=== PATIENT | male | born 1970 | race Caucasian/White ===

== ENCOUNTER 2019-02-02 08:02 | Emergency (ER) | payer SELFPAY ==
[2019-02-02 08:08] VITALS: BP 141/102
[2019-02-02 08:46] LABS: ABSOLUTE EOSINOPHILS # (AUTO) 0.1 10^3/uL (0.0-0.6); ABSOLUTE MONOCYTES (AUTO) 0.8 10^3/uL (0.1-1.4); ABSOLUTE NEUT (AUTO) 2.9 10^3/uL (1.7-8.2); BASOPHILS % (AUTO) 0.9 % (0-2); EOSINOPHILS % (AUTO) 2.2 % (0-6); HEMOGLOBIN 15.9 g/dL (13.5-17.0); LYMPHOCYTES % (AUTO) 20.7 % (13-45); MEAN CORPUSCULAR HEMOGLOBIN 34.2 pg (27.0-33.4); MEAN CORPUSCULAR HGB CONC 34.5 g/dL (32.0-36.0); MEAN CORPUSCULAR VOLUME 99 fl (80-97); PLATELET COUNT 219 10^3/uL (150-450); RED BLOOD COUNT 4.63 10^6/uL (4.35-5.55); RED CELL DISTRIBUTION WIDTH 13.8 % (11.5-14.0); SEGMENTED NEUTROPHILS % (AUTO) 59.2 % (42-78); TOTAL CELLS COUNTED % (AUTO) 100 %; WHITE BLOOD COUNT 4.8 10^3/uL (4.0-10.5)
[2019-02-02 08:54] LABS: APPEARANCE,URINE CLEAR; BILIRUBIN,URINE NEGATIVE (NEGATIVE); COLOR,URINE STRAW; GLUCOSE, URINE 50 mg/dL (NEGATIVE); KETONES,URINE NEGATIVE (NEGATIVE); LEUKOCYTE ESTERASE,URINE NEGATIVE (NEGATIVE); NITRITE,URINE NEGATIVE (NEGATIVE); PROTEIN,URINE NEGATIVE (NEGATIVE); URINE SPECIFIC GRAVITY 1.002; UROBILINOGEN,URINE NEGATIVE mg/dL (<2.0)
--- NOTE | 2019-02-02 08:56 | ER Document Report ---
ED General - General Stated Complaint: RECTAL BLEEDING Time Seen by Provider: 02/02/19 08:45 TRAVEL OUTSIDE OF THE [place] IN LAST 30 DAYS: No - HPI Notes: 48-year-old male with a stated history of alcoholism,'s prior colon cancer st atus post resection remotely in [facility] presents with vomiting blood, abdominal pain and rectal bleeding. Getting Wednesday developed some left upper quadrant pain and left subcostal pain, vomited some bright red blood one time. Since then no hematemesis but had several episodes where he wiped his stool and had some bright red blood and some small clots. He has had no unplanned weight loss. Pain is gradual onset, nonradiating, throbbing and achy. He states he had 2 prior surgeries with colon resections one was 8 inches, was 36 inches. Moderate intensity, gradual onset, nonradiating. No other modifying factors, no other associated symptoms, no other provocative or palliative factors. No change in stool caliber. - Related Data Allergies/Adverse Reactions: No Known Allergies Allergy (Verified 02/02/19 08:12) Past Medical History - Social History Smoking Status: Current Every Day Smoker Chew tobacco use (# tins/day): No Frequency of alcohol use: (2) 42oz daily Drug Abuse: Marijuana Family History: Reviewed & Not Pertinent Patient has suicidal ideation: No Patient has homicidal ideation: No - Medical History Notes: Includes history of colon cancer status post resection Review of Systems - Review of Systems Notes: Review of systems as in the history of present illness, otherwise negative x 10 systems. Physical Exam - Vital signs Vitals: Temp Pulse Resp BP Pulse Ox 97.5 F 88 20 141/102 H 97 02/02/19 08:06 02/02/19 08:06 02/02/19 08:06 02/02/19 08:06 02/02/19 08:06 - Notes Notes: General: Well developed . HEENT: Normocephalic, atraumatic. Pupils equal round reactive to light. No JVD. Chest: No trauma. Respiratory: Good air exchange, normal excursion. Cardiac: Regular rhythm. No murmurs or gallops. Abdomen: Soft, nondistended, minimal left upper mid quadrant tenderness. No mass. Rectal exam shows no external hemorrhoid, no obvious mass. No active bl eeding.. Back: No asymmetry or gross abnormality. Motor: Grossly normal power and tone. Neurologic: Alert, nonfocal. Cranial nerves II-12 are intact. Sensation intact. Vascular: Well perfused. Normal peripheral pulses. Skin: No petechiae or purpura. Course - Re-evaluation Re-evalutation: 02/02/19 08:56 Well-appearing male with upper and lower GI bleeding unclear etiology. Consider Peptic ulcer disease, gastritis, malignancy. May be internal hemorrhoid. Most likely AVM, consider diverticulosis. Plan proceed with serial exams, labs, repeat examination and reassess. 02/02/19 09:45 Labs reviewed, CBC is unremarkable, chemistries and LFTs unremarkable, coags normal. Serial exam showed benign abdomen. I had extensive discussion with the patient and his regarding the critical need for outpatient follow-up. [facility] Patient understands that concern over potential for recurrence of his malignancy. She develop any worsening symptoms, return immediately. - Vital Signs Vital signs: Temp Pulse Resp BP Pulse Ox 97.5 F 88 20 141/102 H 97 02/02/19 08:06 02/02/19 08:06 02/02/19 08:06 02/02/19 08:06 02/02/19 08:06 - Laboratory Result Diagrams: 02/02/19 08:30 02/02/19 08:30 Laboratory results interpreted by me: 02/02/19 02/02/19 02/02/19 08:30 08:30 08:30 MCV 99 H MCH 34.2 H [place] % (Auto) 17.0 H Sodium 133.7 L BUN 6 L Glucose 160 H Urine Glucose (UA) 50 H Discharge - Discharge Clinical Impression: Rectal bleed Condition: Stable Disposition: HOME, SELF-CARE Instructions: Rectal Bleeding, Unclear Cause (OM) Referrals: ANCELMO SAVAGE MD [ACTIVE STAFF] - Follow up in 3-5 days [facility] [NO [facility]AL MD] - Follow up in 3-5 days
[2019-02-02 09:09] LABS: ALBUMIN 4.3 g/dL (3.5-5.0); ALKALINE PHOSPHATASE 44 U/L (38-126); ANION GAP 9 (5-19); ASPARTATE AMINO TRANSFERASE 32 U/L (17-59); BILIRUBIN,DIRECT 0.1 mg/dL (0.0-0.4); BILIRUBIN,TOTAL 0.5 mg/dL (0.2-1.3); BLOOD UREA NITROGEN 6 mg/dL (7-20); CALCIUM 9.5 mg/dL (8.4-10.2); CARBON DIOXIDE 27 mmol/L (22-30); CHLORIDE 98 mmol/L (98-107); GLUCOSE 160 mg/dL (75-110); POTASSIUM 4.2 mmol/L (3.6-5.0); TOTAL PROTEIN 7.2 g/dL (6.3-8.2)
--- NOTE | 2019-02-02 09:16 | RADIOLOGY REPORT (SQ) ---
EXAM DESCRIPTION: CHEST 2 VIEWS COMPLETED DATE/TIME: 02/02/2019 9:06 am REASON FOR STUDY: Left chest pain COMPARISON: None. EXAM PARAMETERS: NUMBER OF VIEWS: two views TECHNIQUE: Digital Frontal and Lateral radiographic views of the chest acquired. RADIATION DOSE: NA LIMITATIONS: none FINDINGS: LUNGS AND PLEURA: No opacities, masses or pneumothorax. No pleural effusion. MEDIASTINUM AND HILAR STRUCTURES: No masses or contour abnormalities. HEART AND VASCULAR STRUCTURES: Heart normal size. No evidence for failure. BONES: No acute findings. HARDWARE: None in the chest. OTHER: No other significant finding. IMPRESSION: NO ACUTE RADIOGRAPHIC FINDING IN THE CHEST. TECHNICAL DOCUMENTATION: JOB ID: [id number] [employer]- All Rights Reserved Reading location - IP/workstation name: [email or web address]
== END 2019-02-02 10:03 | disposition home or self-care (01) ==
LOC: ER 08:02
DX: K62.5 Hemorrhage of anus and rectum (principal); F17.200 Nicotine dependence, unspecified, uncomplicated
CPT/HCPCS: 36415; 71046; 80053; 81001; 85025; 99283